=== PATIENT | male | born 1990 | race Caucasian/White ===

== ENCOUNTER 2023-12-05 21:58 | Day surgery (SDC) | payer MEDICAID, SELFPAY ==
--- NOTE | ~2023-12-05 | CT_ITS ---
EXAMINATION: CT ABDOMEN AND PELVIS WITH CONTRAST CLINICAL INFORMATION: Right lower quadrant abdominal pain. Vomiting. COMPARISON: None available. TECHNIQUE: Multidetector volumetric images were obtained from the superior aspect of the liver through the pubic symphysis following administration 85 mL of Omnipaque 350 intravenous contrast. Sagittal and coronal reformatted images were obtained on the technologist's workstation. Oral contrast: No This CT examination was performed using dose optimization techniques as appropriate, variously including the following: *Automated exposure control *Adjustment of mA and/or kV according to patient size (this includes techniques or standardized protocols for targeted exams where dose is matched to indication/reason for exam; i.e. extremities or head) *Use of iterative reconstruction technique DLP: 370 mGy-cm FINDINGS: LUNG BASES: The visualized lung bases are unremarkable. LIVER, GALLBLADDER, AND BILIARY TREE: The liver is normal in size, shape, and attenuation. Peripheral right hepatic 0.9 cm hypodensity, too small to characterize. No additional focal hepatic lesion or biliary ductal dilatation is present. The gallbladder is unremarkable with no evidence of radiopaque gallstones, gallbladder wall thickening, or obvious pericholecystic inflammatory changes. PANCREAS: Unremarkable. SPLEEN: Unremarkable. ADRENAL GLANDS: Unremarkable. KIDNEYS AND URETERS: The kidneys are normal in size, shape, and attenuation. No hydronephrosis, hydroureter, or calculi seen. No perinephric stranding. BLADDER: Unremarkable. GASTROINTESTINAL TRACT: No small or large bowel obstruction. No bowel wall thickening or inflammatory change. The distal tip of the appendix is fluid-filled with minimal wall enhancement measuring up to 0.7 cm in greatest dimension. There is a tiny distal appendicolith measuring up to 0.2 similar. Minimal if any adjacent stranding. Findings could represent early tip appendicitis. No extraluminal air or organized fluid collection to suggest perforation or abscess formation. PERITONEAL CAVITY: No intra-abdominal free air or free fluid. No intra-abdominal mass or organized fluid collection/abscess formation. ABDOMINAL WALL: No significant hernia is appreciated. LYMPH NODES: No significant lymphadenopathy. VASCULAR: Unremarkable. PELVIC VISCERA: The prostate and seminal vesicles are unremarkable. OSSEOUS STRUCTURES: Unremarkable. CT/CT abdomen pelvis w IV con IMPRESSION: 1. Fluid-filled distal tip of the appendix with minimal wall enhancement and a tiny appendicolith. Minimal if any adjacent stranding. Findings could represent early tip appendicitis. No evidence of perforation or abscess formation. 2. No intra-abdominal mass, lymphadenopathy, or ascites. Fleischner guidelines were followed. Electronically signed by: Mark Shafer MD 12/06/2023 06:03 AM EDT RP
[2023-12-05 22:48] VITALS: BP 111/69; PULSE 76; RESP 16; TEMP 37.1; O2SAT 100; BMI 22.7
[2023-12-05 23:07] LABS: MANUAL DIFF FLAG NO
[2023-12-05 23:08] LABS: Basophils Absolute Auto 0.1 X10*3/uL (0.0-0.2); Basophils Percent Auto 0.4 % (0-2); Hematocrit 38.7 % (42.0-52.0); Hemoglobin 12.5 g/dl (14.0-18.0); Imm Gran Abs Auto 0.09 X10*3/uL (0.00-0.03); Imm Gran Pct Auto 0.6 % (0.0-0.4); Lymphocytes Absolute Auto 1.1 X10*3/uL (1.2-4.9); Lymphocytes Percent Auto 6.9 % (20-40); Mean Corpuscular HGB Conc 32.3 g/dl (31.0-36.0); Mean Corpuscular Volume 74.3 fL (80.0-98.0); Mean Platelet Volume 9.8 fL (9.4-12.4); Monocytes Percent Auto 6.1 % (2-11); Neutrophils Absolute Auto 13.7 x10*3/uL (2.0-8.3); Platelet Count 348 X10*3/uL (160-400); Red Blood Count 5.21 X10*6/uL (4.60-5.80); Red Cell Distribution Width 13.9 % (11.0-16.0)
[2023-12-05 23:36] LABS: Alanine Aminotransferase 32 U/L (0-40); Alkaline Phosphatase 58 U/L (39-117); Anion Gap 20 (12-20); Aspartate Amino Transferase 106 U/L (5-37); Bilirubin Total 1.4 mg/dL (0.0-1.0); Blood Urea Nitrogen 23 mg/dL (9-16); Calcium 9.8 mg/dL (8.4-10.2); Carbon Dioxide 20 mmol/L (22-29); Chloride 101 mmol/L (96-108); Creatinine Clr Calc Pharmacy 74.7; Estimated Glomerular Filt Rate 55; Ethanol < 10 mg/dL; Glucose Random 73 mg/dL (60-115); Lipase 21 U/L (8-78); Potassium 3.9 mmol/L (3.3-5.1); Sodium 137 mmol/L (135-145); Total Protein 7.9 g/dL (6.5-8.0)
[2023-12-05 23:44] LABS: Influenza A PCR NEGATIVE (Negative); Influenza B PCR NEGATIVE (Negative); Resp Syncy Virus RNA Qual PCR NEGATIVE (Negative); SARS COV2 PCR INHOUSE NEGATIVE (Negative)
[2023-12-06] VITALS (8 sets, daily range): BP systolic 101–122; BP diastolic 47–67; PULSE 70–93; RESP 16–18; TEMP 36.5–37.1; O2SAT 97–100
--- NOTE | 2023-12-06 02:23 | ED.GENADULT ---
HPI - General Adult General Chief complaint: General Medical Stated complaint: dehydrated, vomiting, wants to pass out Time Seen by Provider: 12/06/23 02:05 Source: patient Mode of arrival: ambulatory Limitations: no limitations History of Present Illness ED Provider: Dr. Fátima Jimenez HPI narrative: patient comes to the emergency room complaining of 3 days of vomiting, not able to tolerate p.o. and right lower quadrant pain. Patient states that he has been trying to stop drinking alcohol. Patient takes naltrexone at home as part of his treatment for alcoholism. Patient states that he has not had any alcohol for 3 days. Patient complaining of right lower quadrant pain, intermittent. Patient states that he has been playing soccer for 2 consecutive days and is not sure if he pulled a muscle. Related Data Allergies Allergy/AdvReac Type Severity Reaction Status Date / Time No Known Allergies Allergy Verified 12/05/23 22:48 Review of Systems Review of Systems: Constitutional : No Weight loss, No Fever, No Chills, No Night Sweats, No Fatigue, No Malaise ENT/Mouth : No Hearing loss, No Ear Pain, No Nasal Congestion, No Sinus Pain, No Hoarseness, No sore throat, No Rhinorrhea, No Swallowing Difficulty Eyes: No Eye Pain, No Swelling, No Redness, No Foreign Body, No Discharge, No Vision Changes Cardiovascular : No Chest Pain, No SOB, No Dyspnea on Exertion, No Orthopnea, No Edema, No Palpitations Respiratory : No Cough, No Sputum, No Wheezing, No Smoke Exposure, No Dyspnea Gastrointestinal : Complaining of nausea and vomiting, no diarrhea, complaining of right lower quadrant pain Genitourinary : no irregular bleeding, No Dysuria, No Urinary Frequency, No Hematuria, No Urinary Incontinence, No Urgency, No Flank Pain, No Urinary Flow Changes, No Hesitancy Musculoskeletal : No joint pain, No Myalgias, No Joint Swelling Skin : No Skin Lesions, No rash Neuro : No Weakness, No Numbness, No Paresthesias, No Loss of Consciousness, No Dizziness, No Headache Psych : No Anxiety/Panic, No Depression, No SI/HI/AH/VH, admits to history of alcoholism but is trying to stop drinking, patient is on naltrexone treatment Heme/Lymph: No Bruising, No Bleeding,No Lymphadenopathy Endocrine : No Polyuria, No Polydipsia, No Temperature Intolerance [facility] Past Medical History Medical History (Updated 12/06/23 @ 06:21 by Fátima Jimneez MD) Alcohol dependence Social History Social History Alcohol intake: current Alcohol intake frequency: 3 or more drinks per day Alcohol type: hard liquor Smoked in Last 30 Days: No Use of substances other than those prescribed or required for medical reasons: No Advance Directives: No Advance Directives Information Provided: No Do you have a plan to hurt others: No Plan Physical Exam ED Vital Signs: Vital Signs - 24 hr 12/05/23 22:48 Temperature 98.7 F Pulse Rate 76 Respiratory Rate 16 Blood Pressure 111/69 Pulse Oximetry 100 Oxygen Delivery Method Room Air BMI result Body Mass Index 22.7 Const Other: Appearance: Alert. Oriented X3. No acute distress. Eyes: Pupils equal, round and reactive to light. ENT: Pharynx normal. Neck: Normal inspection. Neck supple. No lymph nodes noted. No crepitus CVS: Normal heart rate and rhythm. Pulses normal. Normal S1 and S2 Respiratory: No respiratory distress. Breath sounds normal. No Wheezing. No rales Abdomen: Soft , tenderness to palpation in the right lower quadrant, no periumbilical pain Skin: Skin warm and dry. Normal skin color. Normal skin turgor. Extremities: No lower extremity edema. No Lacerations. No Rash Neuro: Oriented X 3. No motor deficit. No sensory deficit. Moving all extremities. No slurred speech. CN 2 through 12 grossly intact Psych: calm, cooperative, normal affect Course Course Course Narrative: patient receiving IV fluids, Zofran, ketorolac, Pepcid - CT scan of the abdomen pending Medications Administered Discontinued Medications Generic Name Dose Route Start Last Admin Trade Name Dana PRN Reason Stop Dose Admin Famotidine 20 mg 12/06/23 02:22 12/06/23 02:40 Famotidine/Pf 20 Mg/2 Ml Vial IVPUSH 12/06/23 02:23 20 mg ONCE ONE Administration Sodium Chloride 2,000 mls @ 999 mls/hr 12/06/23 02:20 12/06/23 04:41 Ns IVCONT 12/06/23 04:20 Infused .Q2H1M ONE Infusion Piperacillin Sod/Tazobactam 50 mls @ 100 mls/hr 12/06/23 06:11 12/06/23 06:44 Sod 3.375 gm/ Sodium Chloride IV 12/06/23 06:40 100 mls/hr ONCE ONE Administration Iohexol 85 ml 12/06/23 02:28 12/06/23 02:37 Iohexol 350 Mg/Ml 100 Ml Infus..Btl IV 12/06/23 02:29 85 ml ONCE ONE Administration Ketorolac Tromethamine 30 mg 12/06/23 02:20 12/06/23 02:40 Ketorolac Tromethamine 30 Mg/Ml Vial IVPUSH 12/06/23 02:21 30 mg ONCE ONE Administration Ondansetron HCl 4 mg 12/06/23 02:20 12/06/23 02:40 Ondansetron Hcl 4 Mg/2 Ml Vial IVPUSH 12/06/23 02:21 4 mg ONCE ONE Administration Medical Decision Making Medical Decision Making [facility] Narrative: - my interpretation of labs: White blood cell count 16.0, creatinine slightly bumped, CPK slightly bumped as well. Patient has been playing full soccer games daily for the last couple of days. - Patient receiving IV fluids, Zofran, famotidine and ketorolac. - My interpretation of CT scan, questionable appendicitis - radiology report: Possible early tip appendicitis - Patient empirically being treated with antibiotics, patient already received IV fluids. Sepsis is not suspected. - I discussed the patient with Dr. Escobar from general surgery, he was by earlier this morning to assess the patient. - 07:00: Dr. Escobar assessed the patient, patient will be going to the OR Differential Diagnosis Differential Diagnoses: The differential diagnosis associated with the presentation includes ( Dehydration, musculoskeletal pain, appendicitis) Admission/Observation Consideration of admission/observation: Escalation of care including admission/observation considered ( patient may have appendicitis, surgery consult pending) Consult Healthcare Provider Management of the patient was discussed with: Physical Medicine Specialist Lab Data [facility] Lab Attestation statement: I reviewed the patient's lab results. 12/05/23 23:03 12/05/23 23:03 Labs: Lab Results 12/05/23 12/06/23 Range/Units 23:03 06:22 WBC 16.0 H (4.8-10.8) X10*3/uL RBC 5.21 (4.60-5.80) X10*6/uL Hgb 12.5 L (14.0-18.0) g/dl Hct 38.7 L (42.0-52.0) % MCV 74.3 L (80.0-98.0) fL MCH 24.0 L (27.0-33.0) pg MCHC 32.3 (31.0-36.0) g/dl RDW 13.9 (11.0-16.0) % Plt Count 348 (160-400) X10*3/uL MPV 9.8 (9.4-12.4) fL Immature Gran % (Auto) 0.6 H (0.0-0.4) % Neut % (Auto) 86.0 H (45-73) % Lymph % (Auto) 6.9 L (20-40) % [place] % (Auto) 6.1 (2-11) % Eos % (Auto) 0.0 (0-4) % Baso % (Auto) 0.4 (0-2) % Lymph # (Auto) 1.1 L (1.2-4.9) X10*3/uL [place] # (Auto) 1.0 (0.1-1.2) X10*3/uL Eos # (Auto) 0.0 (0.0-0.4) X10*3/uL Baso # (Auto) 0.1 (0.0-0.2) X10*3/uL Abs Immat Gran (auto) 0.09 H (0.00-0.03) X10*3/uL Absolute Neuts (auto) 13.7 H (2.0-8.3) x10*3/uL Absolute Nucleated RBC 0.000 (0.0-0.012) X10*3/uL Nucleated RBC % (auto) 0.0 (0.0-0.2) /100WBC Sodium 137 (135-145) mmol/L Potassium 3.9 (3.3-5.1) mmol/L Chloride 101 (96-108) mmol/L Carbon Dioxide 20 L (22-29) mmol/L Anion Gap 20 (12-20) BUN 23 H (9-16) mg/dL Creatinine 1.47 H (0.5-1.4) mg/dL Estim Creat Clear Calc 74.7 Estimated GFR 55 Random Glucose 73 (60-115) mg/dL Calcium 9.8 (8.4-10.2) mg/dL Total Bilirubin 1.4 H (0.0-1.0) mg/dL AST 106 H (5-37) U/L ALT 32 (0-40) U/L Alkaline Phosphatase 58 (39-117) U/L Total Creatine Kinase 3687 H (38-174) U/L Total Protein 7.9 (6.5-8.0) g/dL Albumin 5.0 (3.5-5.0) g/dL Lipase 21 (8-78) U/L Urine Opiates Screen Not Detected (Not Detect) Ur Buprenorphine Scrn Not Detected (Not Detect) ng/mL Ur Oxycodone Screen Not Detected (Not Detect) ng/mL Urine Methadone Screen Not Detected (Not Detect) ng/mL Urine Fentanyl Screen Not Detected (Not Detect) Ur Barbiturates Screen Not Detected (Not Detect) Ur Phencyclidine Scrn Not Detected (Not Detect) Ur Amphetamines Screen Not Detected (Not Detect) U Benzodiazepines Scrn Not Detected (Not Detect) Urine Cocaine Screen Not Detected (Not Detect) U Marijuana (THC) Screen POSITIVE H (Not Detect) Ethyl Alcohol < 10 mg/dL Influenza Type A (PCR) NEGATIVE (Negative) Influenza Type B (PCR) NEGATIVE (Negative) RSV RNA Qual (PCR) NEGATIVE (Negative) SARS-CoV-2 RNA (RT-PCR) NEGATIVE (Negative) Independent Interpretation I performed an independent interpretation of an: CT Scan Radiology Impression Discussion of test interpretation with radiology: I have reviewed the radiologist's reading. Radiologist Impression: LUNG BASES: The visualized lung bases are unremarkable. LIVER, GALLBLADDER, AND BILIARY TREE: The liver is normal in size, shape, and attenuation. Peripheral right hepatic 0.9 cm hypodensity, too small to characterize. No additional focal hepatic lesion or biliary ductal dilatation is present. The gallbladder is unremarkable with no evidence of radiopaque gallstones, gallbladder wall thickening, or obvious pericholecystic inflammatory changes. PANCREAS: Unremarkable. SPLEEN: Unremarkable. ADRENAL GLANDS: Unremarkable. KIDNEYS AND URETERS: The kidneys are normal in size, shape, and attenuation. No hydronephrosis, hydroureter, or calculi seen. No perinephric stranding. BLADDER: Unremarkable. GASTROINTESTINAL TRACT: No small or large bowel obstruction. No bowel wall thickening or inflammatory change. The distal tip of the appendix is fluid-filled with minimal wall enhancement measuring up to 0.7 cm in greatest dimension. There is a tiny distal appendicolith measuring up to 0.2 similar. Minimal if any adjacent stranding. Findings could represent early tip appendicitis. No extraluminal air or organized fluid collection to suggest perforation or abscess formation. PERITONEAL CAVITY: No intra-abdominal free air or free fluid. No intra-abdominal mass or organized fluid collection/abscess formation. ABDOMINAL WALL: No significant hernia is appreciated. LYMPH NODES: No significant lymphadenopathy. VASCULAR: Unremarkable. PELVIC VISCERA: The prostate and seminal vesicles are unremarkable. OSSEOUS STRUCTURES: Unremarkable. CT/CT abdomen pelvis w IV con IMPRESSION: 1. Fluid-filled distal tip of the appendix with minimal wall enhancement and a tiny appendicolith. Minimal if any adjacent stranding. Findings could represent early tip appendicitis. No evidence of perforation or abscess formation. 2. No intra-abdominal mass, lymphadenopathy, or ascites. Fleischner guidelines were followed. Critical Care Time Critical Care Time Critical Care Time: Yes Total Critical Care Time: 60 Attestation: I have personally provided critical care time. Time includes review of lab data, radiology results, discussion with consultants, and monitoring for potential decompensation. Intervention performed as documented. Discharge Plan Discharge Clinical Impression: Rhabdomyolysis, Acute appendicitis Patient Disposition: Admitted As Inpatient Print Language: Bengali
[2023-12-06] MEDS: iohexoL 350 MG/ML 100 ML INFUS..BTL 85 ML IV (02:37)
[2023-12-06] MEDS: ondansetron HCL 4 MG/2 ML VIAL IVPUSH (02:40)
[2023-12-06] MEDS: 0.9 % Sodium Chloride 2,000 ML 999 ML IVCONT (02:40)
[2023-12-06] MEDS: Ketorolac Tromethamine 30 MG/ML VIAL IVPUSH (02:40)
[2023-12-06] MEDS: Famotidine/PF 20 MG/2 ML VIAL IVPUSH (02:40)
[2023-12-06] MEDS: Piperacillin Sodium/Tazobactam 3.375 GM in 0.9 % Sodium Chloride 50 ML IV (06:44)
[2023-12-06 06:48] LABS: Amphetamine Screen Urine Not Detected (Not Detect); Barbiturates, Urine Not Detected (Not Detect); Benzodiazepines Screen Urine Not Detected (Not Detect); Buprenorphine Scr Not Detected (Not Detect); Cannabinoid Screen Urine POSITIVE (Not Detect); Cocaine Screen Urine Not Detected (Not Detect); Fentanyl, urine Not Detected (Not Detect); Methadone Screen, Urine Not Detected (Not Detect); Opiate Screen Urine Not Detected (Not Detect); Oxycodone Screen Urine Not Detected (Not Detect); Phencyclidine Screen Urine Not Detected (Not Detect)
--- NOTE | 2023-12-06 07:13 | PM.HPGS ---
History of Present Illness History of Present Illness Date of Service: 12/06/23 Chief complaint: dehydrated, vomiting, wants to pass out Narrative: Bk Bello is a 33 year old male who yesterday afternoon felt unwell with periumbilical tenderness and nausea and vomiting. Over the next few hours and overnight patient progressed to right lower quadrant pain and increasing severity. He presents to the hospital further evaluation. Workup including CT scan demonstrated findings consistent with appendicitis. Patient denies any sick contacts. He has never had this before. He has not had any unusual diet. Patient was quite active. He is playing vigorous soccer yesterday afternoon when his symptoms commenced. Chart was reviewed and patient evaluated PMFSH Past Medical History Medical History (Updated 12/06/23 @ 06:21 by Fátima Jimenez MD) Alcohol dependence Social History Social History Alcohol intake: current Alcohol intake frequency: 3 or more drinks per day Alcohol type: hard liquor Smoked in Last 30 Days: No Use of substances other than those prescribed or required for medical reasons: No Advance Directives: No Advance Directives Information Provided: No Do you have a plan to hurt others: No Plan Meds Allergies Allergy/AdvReac Type Severity Reaction Status Date / Time No Known Allergies Allergy Verified 12/05/23 22:48 Physical Exam Vital Signs: Vital Signs: Last Vital Signs Temp 98.7 F 12/05/23 22:48 Pulse 76 12/05/23 22:48 Resp 16 12/05/23 22:48 BP 111/69 12/05/23 22:48 Pulse Ox 100 12/05/23 22:48 O2 Del Method Room Air 12/05/23 22:48 BMI result Body Mass Index 22.7 Chest: Other: Chest breath sounds bilaterally, HS 1 in 2 GI: Other: Abdomen soft. Localized right lower quadrant rebound tenderness. No other evidence of any diffuse peritonitis, guarding, rebound, or rigidity. Results Results Labs: Short CBC 12/05/23 Range/Units 23:03 WBC 16.0 H (4.8-10.8) X10*3/uL Hgb 12.5 L (14.0-18.0) g/dl Hct 38.7 L (42.0-52.0) % Plt Count 348 (160-400) X10*3/uL BMP 12/05/23 23:03 Sodium 137 Potassium 3.9 Chloride 101 Carbon Dioxide 20 L BUN 23 H Creatinine 1.47 H Calcium 9.8 Cardiac Enzymes 12/05/23 Range/Units 23:03 Total Creatine Kinase 3687 H (38-174) U/L Liver Function 12/05/23 Range/Units 23:03 Total Bilirubin 1.4 H (0.0-1.0) mg/dL AST 106 H (5-37) U/L ALT 32 (0-40) U/L Alkaline Phosphatase 58 (39-117) U/L Albumin 5.0 (3.5-5.0) g/dL Assessment and Plan (1) Acute appendicitis: Status: Acute Plan Risks, benefits, alternatives laparoscopic possible open appendectomy the me were reviewed with the patient included but not limited to bleeding, infection, numbness, pain, scarring, bladder or bowel injury and the patient wishes to proceed. All questions answered. Patient will be an add on for this morning. Quality Stroke Does the patient have a stroke diagnosis?: No VTE Prior VTE?: No VTE Risk Level:: Surgical - low VTE Device Contraindication: N/A - Device Ordered VTE Drug Contraindication: Treatment Not Indicated Procedures Date of Service Date of Service: 12/06/23
--- NOTE | 2023-12-06 07:25 | HO.ANESPROP2 ---
HPI - Anesthesia Eval Consult details Narrative: 33 yo male patient with acute appendicitis and ? rhabdomyolysis. For laparoscopic appendectomy PMFSH Active Problems Active Problems: All Active Problems Acute appendicitis (Acute) Rhabdomyolysis (Acute) Very relaxed but answering questions appropriately Positive marijuana, ETOH negative Last ETOH intake 4 days ago Past Medical History Medical History Alcohol dependence Family History Family history of problems with anesthesia: No Surgical History Surgical History Hx of circumcision Hx of vasectomy History of Problems with Anesthesia: No Social History Social History Alcohol intake: current Alcohol intake frequency: 3 or more drinks per day Alcohol type: hard liquor Smoked in Last 30 Days: No Use of substances other than those prescribed or required for medical reasons: No Advance Directives: No Advance Directives Information Provided: No Do you have a plan to hurt others: No Plan Meds Allergies Allergy/AdvReac Type Severity Reaction Status Date / Time No Known Allergies Allergy Verified 12/05/23 22:48 Exam Height,Weight and Vital Signs: Height 5 ft 11 in Weight 73.9 kg Last Vital Signs Temp 98.7 F 12/05/23 22:48 Pulse 76 12/05/23 22:48 Resp 16 12/05/23 22:48 BP 111/69 12/05/23 22:48 Pulse Ox 100 12/05/23 22:48 O2 Del Method Room Air 12/05/23 22:48 Vital Signs Temp Pulse Resp BP Pulse Ox O2 Del Method 12/06/23 07:15 98.1 F 93 18 122/49 L 100 Room Air 12/05/23 22:48 98.7 F 76 16 111/69 100 Room Air Pertinent Lab Results Pertinent Lab Results: Laboratory Tests 12/05/23 12/06/23 23:03 06:22 WBC 16.0 H RBC 5.21 Hgb 12.5 L Hct 38.7 L MCV 74.3 L MCH 24.0 L MCHC 32.3 RDW 13.9 Plt Count 348 MPV 9.8 Immature Gran % (Auto) 0.6 H Neut % (Auto) 86.0 H Lymph % (Auto) 6.9 L [place] % (Auto) 6.1 Eos % (Auto) 0.0 Baso % (Auto) 0.4 Lymph # (Auto) 1.1 L [place] # (Auto) 1.0 Eos # (Auto) 0.0 Baso # (Auto) 0.1 Abs Immat Gran (auto) 0.09 H Absolute Neuts (auto) 13.7 H Absolute Nucleated RBC 0.000 Nucleated RBC % (auto) 0.0 Sodium 137 Potassium 3.9 Chloride 101 Carbon Dioxide 20 L Anion Gap 20 BUN 23 H Creatinine 1.47 H Estim Creat Clear Calc 74.7 Estimated GFR 55 Random Glucose 73 Calcium 9.8 Total Bilirubin 1.4 H AST 106 H ALT 32 Alkaline Phosphatase 58 Total Creatine Kinase 3687 H Total Protein 7.9 Albumin 5.0 Lipase 21 Urine Opiates Screen Not Detected Ur Buprenorphine Scrn Not Detected Ur Oxycodone Screen Not Detected Urine Methadone Screen Not Detected Urine Fentanyl Screen Not Detected Ur Barbiturates Screen Not Detected Ur Phencyclidine Scrn Not Detected Ur Amphetamines Screen Not Detected U Benzodiazepines Scrn Not Detected Urine Cocaine Screen Not Detected U Marijuana (THC) Screen POSITIVE H Ethyl Alcohol < 10 Influenza Type A (PCR) NEGATIVE Influenza Type B (PCR) NEGATIVE RSV RNA Qual (PCR) NEGATIVE SARS-CoV-2 RNA (RT-PCR) NEGATIVE Airway Mallampati Class: II TM Dist: >3cm Neck ROM: Full Loose/Missing/Broken Teeth: No (Denies broken, loose, missing teeth) Heart: RRR Lungs: CTAB Assessment and Plan Assessment Anesthesia Assessment: Anesthesia Plan Discussed and Chart Reviewed Final Anesthetic Review Family History of Problems with Anesthesia: No History of Problems with Anesthesia: No NPO: Yes ASA Class: III and Emergency Final Preanesthetic Review: No Changes in Pt Med Stat, Meds/Allgs Chart Reviewed, Consent Obtained/Reviewed and Anes Risks/Benef Reviewed Patient Risk: Intermediate Procedure Risk: Intermediate Assessment/Block/Sedation in SS: Assess/Block/Sedation-SS Anesthetic Plan Anesthetic Plan: GA and Other Disposition: Standard PACU
[2023-12-06] MEDS: Lactated Ringers 1,000 ML 50 ML IVCONT (07:35)
--- NOTE | 2023-12-06 08:59 | P.OP_ITS ---
Operative Note Operative Note Date of Service: 12/06/23 Narrative: Preoperative diagnosis: [] Acute appendicitis Postop diagnosis: [] The same Procedure [] laparoscopic appendectomy Surgeon: [] Shawn Senior Control Systems Engineer: [] Type of Anesthesia: [] General Indication for surgery: [] Edematous inflamed distal portion of the appendix. No gross evidence of perforation. No other obvious intra-abdominal pathology demonstrated. Findings: [] Patient brought to the operating room, placed on operative table supine position, after an adequate level of general anesthesia was induced, under sterile technique a Medrano catheter was placed, and the abdomen was prepped and draped in usual sterile fashion. Using a supraumbilical curvilinear incision, Vallejo technique was used to insufflate abdominal cavity to 15 mm of CO2. Lower midline and suprapubic ports were placed under direct laparoscopic view, the patient placed in Trendelenburg position, and tilted to the left. Findings were as noted above. Appendix was grasped and brought onto the field. It is mesentery was sequentially taken down using double firing of ligature device. Appendix was then transected at the cecal base using endoscopic ROMAIN stapler. Specimen was placed in an Endo-Catch bag, a retrieved through the umbilical port. Abdominal cavity was copiously irrigated, secured hemostasis. All ports removed under direct laparoscopic view. Wounds were closed in the following manner; umbilical wound is fascia reapproximated using interrupted 0 Vicryl sutures. Skin wounds were closed using subcuticular 4-0 Vicryl sutures followed by Steri-Strips and sterile dressings. Wounds were infiltrated with 0.5% Marcaine at completion. Sponge, needle, and instrument counts reported correct. Patient tolerated the procedure well and emerged from anesthesia stable condition. EBL minimal
[2023-12-06] MEDS: oxyCODONE HCl Immed Release 5 MG TABLET PO (09:05)
== END 2023-12-06 10:15 | disposition home or self-care (01) ==
LOC: HO.ED 12-06 07:04 → HO.SSS 12-06 07:11
PROVIDERS: Emergency Provider Emergency Medicine; Visit Provider Surgery
PROC: 0DTJ4ZZ Resection of Appendix, Percutaneous Endoscopic Approach (ICD-10-PCS; CPT 44970; principal; 2023-12-06 07:30)
DX: K35.80 Unspecified acute appendicitis (principal); M62.82 Rhabdomyolysis; R11.2 Nausea with vomiting, unspecified; E86.0 Dehydration; F10.20 Alcohol dependence, uncomplicated; Z98.52 Vasectomy status; Z03.818 Encounter for observation for suspected exposure to other biological agents ruled out
CPT/HCPCS: 44970; 0241U; 36415; 74177; 80053; 80307; 82550; 83690; 85025; 87040; 88304; 96361; 96374; 96375; 99284; 99285; J1200; J1885; J2250; J2405; J2543; J2704; J2795; J3010; Q9967

== ENCOUNTER → 2023-12-06 07:09 | Outpatient (BNV) | payer MEDICAID, SELFPAY | PROVIDERS: Emergency Provider Emergency Medicine; Visit Provider Surgery | DX: K35.80 Unspecified acute appendicitis (principal) | CPT/HCPCS: 44970; 99284 ==

== ENCOUNTER 2023-12-16 11:14 | Outpatient (AMB) | payer MEDICAID, SELFPAY ==
--- NOTE | 2023-12-16 11:21 | A.OFFVIS_ITS ---
Intake Visit Reasons: s/p appendectomy Intake Note: This patient presents for post-op assessment status post laparoscopic appendectomy. Pt c/o; reports no complaints pertaining to surgery. Collection Support Specialist Required: No Accompanied by: Self / Same As Patient Allergies No Known Allergies Allergy (Verified 12/16/23 11:25) HPI Comments Details: Patient is status post appendectomy. He is doing quite well. He is starting a diet. Having regular bowel habits. It is increasing his activity level. He has minimal incisional discomfort PFSH Medical History Alcohol dependence Surgical History History of laparoscopic appendectomy (~12/06/23) Hx of circumcision Hx of vasectomy Social History Are you a primary animal care supervisor to a significant other at home: No Do you presently have visiting nurse or other home services: No Alcohol intake: current Alcohol intake frequency: 3 or more drinks per day Alcohol type: hard liquor Patient Tobacco Use Status: Never used Tobacco Physical Exam GI Other: Abdomen is soft, benign, scaphoid. All wounds clean dry and intact healing very well Assessment & Plan Assessment & Plan (1) Status post laparoscopic appendectomy: Code(s): Z90.49 - Acquired absence of other specified parts of digestive tract Category: Medical Plan Patient has been given local instructions, and will follow-up p.r.n.. All questions answered. Coding Level of Care Code Global (10711) Diagnoses Status post laparoscopic appendectomy Z90.49
== END 2023-12-16 11:32 | disposition home or self-care (01) ==
LOC: HO.HGS 11:14
PROVIDERS: Visit Provider Surgery
DX: Z90.49 Acquired absence of other specified parts of digestive tract (principal)
CPT/HCPCS: 99024

== ENCOUNTER → 2023-12-16 11:14 | Outpatient (BNVA) | payer MEDICAID, SELFPAY | PROVIDERS: Visit Provider Surgery | DX: Z48.815 Encounter for surgical aftercare following surgery on the digestive system (principal); Z90.49 Acquired absence of other specified parts of digestive tract; Z98.890 Other specified postprocedural states | CPT/HCPCS: 99212 ==

== ENCOUNTER 2024-01-30 11:33 | Emergency (ER) | payer MEDICAID, SELFPAY ==
--- NOTE | ~2024-01-30 | CT_ITS ---
EXAMINATION: CT HEAD WITHOUT CONTRAST CLINICAL INFORMATION: acute onset dizziness COMPARISON: None available. TECHNIQUE: Contiguous axial imaging was performed from the skull base to vertex without intravenous administration of contrast. This CT examination was performed using dose optimization techniques as appropriate, variously including the following: *Automated exposure control *Adjustment of mA and/or kV according to patient size (this includes techniques or standardized protocols for targeted exams where dose is matched to indication/reason for exam; i.e. extremities or head) *Use of iterative reconstruction technique DLP: 801 mGy-cm FINDINGS: No acute intracranial hemorrhage, mass effect, midline shift, hydrocephalus or herniation. Graves-white matter differentiation is normal. Posterior cranial fossa contents demonstrated no acute intracranial hemorrhage or mass effect. Bony calvarium is intact. Skull base is intact. No air-fluid levels in the paranasal sinuses. Tympanic cavities and mastoid cells are aerated.. CT/CT head/brain wo IV con IMPRESSION: No acute intracranial hemorrhage. Electronically signed by: Christo Laws MD 01/30/2024 03:49 PM EDT
[2024-01-30 11:37] VITALS: BP 126/76; PULSE 83; RESP 20; TEMP 36.8; O2SAT 99; BMI 23.9
--- NOTE | 2024-01-30 11:40 | ED_ITS ---
HPI - General Adult General Chief complaint: Dizziness Stated complaint: Dizziness, disoriented Time Seen by Provider: 01/30/24 14:10 Source: patient Mode of arrival: ambulatory Limitations: no limitations History of Present Illness ED Provider: BLOSSOM APODACA PA-C HPI narrative: 33-year-old male presents to the ED today for evaluation of acute onset dizziness x2 days. Reports dizziness has been intermittent. These episodes will come on suddenly. He describes them as a room spinning sensation. Dizziness will last for a few seconds before completely resolving. Reports symptoms are largely exacerbated with moving his head. Admits to associated nausea without vomiting. Denies nausea present. Denies any difficulty ambulating. Denies head strike/ injury or trauma. No known history of vertigo. He does have a history of ETOH abuse and will occasionally take naltrexone. He has not not taken naltrexone recently and has not consumed ETOH in approximately 4 days. Denies history of alcohol withdrawal or withdrawal seizures. Denies AH/VH/TH. Denies illicit substance use. He does not currently take any medications daily. Denies headache, vision changes, sore throat, chest pain, palpitations, shortness of breath, cough, hemoptysis, lower extremity pain/swelling. Denies recent travel or long car rides. Related Data Home Medications ?Medication ?Instructions ?Recorded ?Confirmed naltrexone 12/06/23 12/16/23 Previous Rx's ?Medication ?Instructions ?Recorded ibuprofen 800 mg tablet 800 mg PO Q8H PRN pain #30 tabs 12/06/23 meclizine 25 mg tablet 25 mg PO BID PRN dizziness #20 tabs 01/30/24 Allergies Allergy/AdvReac Type Severity Reaction Status Date / Time No Known Allergies Allergy Verified 01/30/24 11:40 Review of Systems 2 Review of Systems: Constitutional: No fever, chills, fatigue, night sweats, weight changes ENT/Mouth: No ear pain, hearing loss, nasal congestion, sinus pain, rhinorrhea, sore throat Eyes: No eye pain, swelling, redness, vision changes, discharge Cardio: No chest pain, palpitations, CASSIDY, orthopnea, peripheral edema Pulm: No SOB, cough, sputum, wheezing, dyspnea, hemoptysis GI: No nausea, vomiting, hematemesis, abdominal pain, diarrhea, constipation, hematochezia, melena : No irregular bleeding, dysuria, frequency, urgency, hesitancy, hematuria, flank pain, urinary flow changes, urinary incontinence or retention MSK: No back pain, neck pain, joint pain, myalgias Skin: No lesions, rashes Neuro: No weakness, numbness, paresthesias, LOC, +dizziness, headache Psych: No anxiety/panic, depression, SI/HI, AH/VH All other systems reviewed and are negative. COUNTS INCLUDE 234 BEDS AT THE [facility] Past Medical History Attestation statement: The following information was validated with the patient. Source: old records reviewed and nursing notes reviewed Medical History Alcohol dependence Surgical History History of laparoscopic appendectomy (~12/06/23) Hx of circumcision Hx of vasectomy Social History Social History Are you a primary medicare insurance specialist to a significant other at home: No Do you presently have visiting nurse or other home services: No Alcohol intake: current Alcohol intake frequency: 3 or more drinks per day Alcohol type: hard liquor Patient Tobacco Use Status: Never used Tobacco Physical Exam ED Vital Signs: Vital Signs - 24 hr 01/30/24 11:37 01/30/24 13:47 01/30/24 15:14 Temperature 98.2 F 98.4 F Pulse Rate 83 65 67 Respiratory Rate 20 16 16 Blood Pressure 126/76 128/59 L 113/65 Pulse Oximetry 99 100 100 Oxygen Delivery Method Room Air Room Air Room Air 01/30/24 17:15 Temperature 98.0 F Pulse Rate 67 Respiratory Rate 16 Blood Pressure 113/65 Pulse Oximetry 100 Oxygen Delivery Method Room Air BMI result Body Mass Index 23.9 vital signs stable General: Well appearing, in no acute distress. Skin: Warm, dry, intact. No rashes or lesions. Head: Normocephalic, atraumatic. EENT: Hearing is intact b/l. Conjunctiva clear. PERRLA. EOM intact. Moist mucous membranes.? Neck: Supple without LAD. FROM. Trachea midline.? Cardiac: Chest wall symmetric. RRR. Lungs: Normal respiratory effort without accessory muscle use. CTA bilaterally. Abdomen: Soft, non-tender, non-distended. No rebound tenderness or guarding. Positive BS x4. Back: No midline spinous or paraspinal tenderness. No step off deformity. Ext: Upper and lower extremities atraumatic, without tenderness, deformity, swelling or erythema. Full ROM throughout. Neuro: AOx3. Normal speech. Strength 5/5 intact throughout. Sensation intact to light touch. NV intact distally. No fatigable nystagmus. Normal hcdnhx-[id number]-[id number], [id number]. Ambulating with steady gait. Psych: Appropriate mood and affect. Responds appropriately to questions. Course Course Course Narrative: RME, this is a rapid medical exam performed by Galo Cruz please refer to primary provider for complete H&P- 33-year-old male presents for evaluation of intermittent dizziness for the last 2 days. He denies any known history of vertigo but describes his symptoms as room spinning. He reports associated nausea and occasional ?feeling like I am going to pass out. ? Plan for labs, urinalysis, viral swabs Reevaluation(s) Reevaluation #1: 1440 -- CBC without leukocytosis or left shift. Chronic microcytic anemia, stable when compared to priors. H&H above transfusion threshold. Chemistry without acute electrolyte abnormality requiring intervention. No EFREN. CK 231, no concern for rhabdomyolysis. Troponin pending. Lipase WNL. Negative for COVID, flu, RSV. Urine negative for infection. > will trial of meclizine. CT head/brain added for further eval. 1618 -- on re-evaluation, patient states that he has had no further episodes of dizziness since receiving meclizine. I have witnessed him ambulating with steady gait to the bathroom multiple times. He states he feels improved. CT head/brain does not demonstrate any intracranial pathology including bleed and mass. Patient likely has vertigo. I do not feel as though CTA head/neck or MRI of brain is warranted at this time. Will send meclizine and Zofran to pharmacy to treat symptomatically. Advised to follow up with PCP as he may require physical therapy in the future. She verbalizes understanding and is agreeable with plan. Patient has remained stable throughout ED visit today. Discussed worrisome signs and symptoms and when to return to the ED. All questions answered at this time. Patient is agreeable with disposition and stable for discharge. Medications Administered Discontinued Medications Generic Name Dose Route Start Last Admin Trade Name Freq PRN Reason Stop Dose Admin Meclizine HCl 25 mg 01/30/24 14:51 01/30/24 15:13 Meclizine Hcl 25 Mg Tablet PO 01/30/24 14:52 25 mg ONCE ONE Administration Medical Decision Making Medical Decision Making [facility] Narrative: 33-year-old male presents to the ED today for evaluation of acute onset dizziness x2 days. Vital signs stable. afebrile. not tachycardic or hypoxic. His exam is nonfocal. Cerebellum is intact. He is ambulating with steady gait. No noted fatigable nystagmus. RRR. Lungs CTA. No calf tenderness b/l. Dizziness is most consistent with a peripheral cause, likely vertigo.? Differential diagnoses includes: BPPV vs labrynthitis. No red flag features for central vertigo to include gradual onset, vertical/bidirectional or nonfatigable nystagmus, focal neurologic findings on exam (including inability to ambulate). 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 Other acute, emergent causes of vertigo are unlikely given at this time. No indication for head imaging at this time. Given no history of similar, will obtain CT head/ brain to r/o bleed or mass. Plan: labs, UA, viral serology, ethanol, trial meclizine, serial reassessment Differential Diagnosis Differential Diagnoses: The differential diagnosis associated with the presentation includes as above. Admission/Observation not indicated. Lab Data [facility] Lab Attestation statement: I reviewed the patient's lab results. as above. 01/30/24 12:16 01/30/24 12:16 Labs: Lab Results 01/30/24 01/30/24 Range/Units 12:16 13:49 WBC 5.9 (4.8-10.8) X10*3/uL RBC 5.13 (4.60-5.80) X10*6/uL Hgb 12.4 L (14.0-18.0) g/dl Hct 38.1 L (42.0-52.0) % MCV 74.3 L (80.0-98.0) fL MCH 24.2 L (27.0-33.0) pg MCHC 32.5 (31.0-36.0) g/dl RDW 14.4 (11.0-16.0) % Plt Count 375 (160-400) X10*3/uL MPV 9.8 (9.4-12.4) fL Immature Gran % (Auto) 0.2 (0.0-0.4) % Neut % (Auto) 78.8 H (45-73) % Lymph % (Auto) 14.2 L (20-40) % [place] % (Auto) 5.6 (2-11) % Eos % (Auto) 0.2 (0-4) % Baso % (Auto) 1.0 (0-2) % Lymph # (Auto) 0.8 L (1.2-4.9) X10*3/uL [place] # (Auto) 0.3 (0.1-1.2) X10*3/uL Eos # (Auto) 0.0 (0.0-0.4) X10*3/uL Baso # (Auto) 0.1 (0.0-0.2) X10*3/uL Abs Immat Gran (auto) 0.01 (0.00-0.03) X10*3/uL Absolute Neuts (auto) 4.7 (2.0-8.3) x10*3/uL Absolute Nucleated RBC 0.000 (0.0-0.012) X10*3/uL Nucleated RBC % (auto) 0.0 (0.0-0.2) /100WBC PT 11.9 (10.9-12.4) SEC INR 1.0 (0.9-1.1) Sodium 137 (135-145) mmol/L Potassium 4.0 (3.3-5.1) mmol/L Chloride 103 (96-108) mmol/L Carbon Dioxide 28 (22-29) mmol/L Anion Gap 10 L (12-20) BUN 12 (9-16) mg/dL Creatinine 1.10 (0.5-1.4) mg/dL Estim Creat Clear Calc 101.7 Estimated GFR > 60 Random Glucose 91 (60-115) mg/dL Calcium 10.0 (8.4-10.2) mg/dL Total Bilirubin 1.3 H (0.0-1.0) mg/dL AST 33 (5-37) U/L ALT 20 (0-40) U/L Alkaline Phosphatase 52 (39-117) U/L Total Creatine Kinase 231 H (38-174) U/L Troponin I High Sens < 2.7 (<3.5-35.0) ng/L Total Protein 7.4 (6.5-8.0) g/dL Albumin 4.7 (3.5-5.0) g/dL Lipase 18 (8-78) U/L Urine Color Yellow Urine Appearance Clear Urine pH 6.0 (5.0-9.0) Ur Specific [place] 1.015 (1.005-1.025) Urine Protein Trace (Neg-Trace) mg/dL Urine Glucose (UA) Negative (Negative) mg/dL Urine Ketones Trace (Negative) mg/dL Urine Blood Negative (Negative) Urine Nitrite Negative (Negative) Ur Leukocyte Esterase Trace H (Negative) Urine RBC 0-2 (0-2) /HPF Urine WBC 0-5 (0-5) /HPF Ur Squamous Epith Cells 0-2 (0-2) /HPF Urine Bacteria None Seen (None Seen) Hyaline Casts 0-2 (0-2) /LPF COVID-19 (JIMENA) Negative (Negative) COVID-19 Clin Com See Note Influenza Type A (KRYSTA) Negative (Negative) Influenza Type B (KRYSTA) Negative (Negative) Influenza A & B Note See Note Independent Interpretation I performed an independent interpretation of an: EKG and CT Scan Interpretation: EKG showing normal sinus rhythm with sinus arrhythmia, rate of 61 beats per minute, QT 364, QTC 366, no acute ischemic changes or ST elevations. CT head/brain without bleed or mass. Radiology Impression Discussion of test interpretation with radiology: I have reviewed the radiologist's reading. Radiologist Impression: EXAMINATION: CT HEAD WITHOUT CONTRAST CLINICAL INFORMATION: acute onset dizziness COMPARISON: None available. TECHNIQUE: Contiguous axial imaging was performed from the skull base to vertex without intravenous administration of contrast. This CT examination was performed using dose optimization techniques as appropriate, variously including the following: *Automated exposure control *Adjustment of mA and/or kV according to patient size (this includes techniques or standardized protocols for targeted exams where dose is matched to indication/reason for exam; i.e. extremities or head) *Use of iterative reconstruction technique DLP: 801 mGy-cm FINDINGS: No acute intracranial hemorrhage, mass effect, midline shift, hydrocephalus or herniation. Graves-white matter differentiation is normal. Posterior cranial fossa contents demonstrated no acute intracranial hemorrhage or mass effect. Bony calvarium is intact. Skull base is intact. No air-fluid levels in the paranasal sinuses. Tympanic cavities and mastoid cells are aerated.. CT/CT head/brain wo IV con IMPRESSION: No acute intracranial hemorrhage. Electronically signed by: Christo Laws MD 01/30/2024 03:49 PM EDT Prescription Management I considered prescription management with: Other (meclizine) Social Determinants Patient?s care significantly limited by Social Determinants of Health including: Alcoholism and drug addiction in family and Other Social Determinant of Health Critical Care Time Critical Care Time Critical Care Time: No Discharge Plan Discharge Clinical Impression: Benign paroxysmal positional vertigo Patient Disposition: Home, Self-Care Instructions: Meclizine (By mouth), Benign Paroxysmal Positional Vertigo (ED), Dizziness (ED) Additional Instructions: Your lab work today is reassuring. Your EKG is normal. Your urine is negative for infection. You tested negative for covid/flu/rsv. The CT scan of your head is normal. No bleed or mass. You report improvement in dizziness after receiving meclizine. Meclizine has been sent to your pharmacy for you to take as needed for dizziness. As discussed, please follow up with your PCP as you may require physical therapy. Return with new or worsening symptoms. In the case of an emergency call 911. Prescriptions: New meclizine 25 mg tablet 25 mg PO BID PRN (Reason: dizziness) Qty: 20 0RF No Action naltrexone ibuprofen 800 mg tablet 800 mg PO Q8H PRN (Reason: pain) Qty: 30 0RF Interventions: ED Discharge Assessment Last Done: 01/30/24 17:15 Discharge Date/Time: 01/30/24 17:16 Print Language: Kenyan
--- NOTE | 2024-01-30 11:41 | ECG_ITS ---
Test Reason : dizziness Blood Pressure : / mmHG Vent. Rate : 061 BPM Atrial Rate : 061 BPM P-R Int : 168 ms QRS Dur : 094 ms QT Int : 364 ms P-R-T Axes : 072 073 011 degrees QTc Int : 366 ms Normal sinus rhythm with sinus arrhythmia Normal ECG No previous ECGs available Referred By: Nilo Cruz Electronically Signed By:Hu Stroud
[2024-01-30 12:22] LABS: MANUAL DIFF FLAG NO
[2024-01-30 12:26] LABS: Basophils Absolute Auto 0.1 X10*3/uL (0.0-0.2); Eosinophils Percent Auto 0.2 % (0-4); Hematocrit 38.1 % (42.0-52.0); Hemoglobin 12.4 g/dl (14.0-18.0); Imm Gran Abs Auto 0.01 X10*3/uL (0.00-0.03); Imm Gran Pct Auto 0.2 % (0.0-0.4); Lymphocytes Absolute Auto 0.8 X10*3/uL (1.2-4.9); Lymphocytes Percent Auto 14.2 % (20-40); Mean Corpuscular HGB Conc 32.5 g/dl (31.0-36.0); Mean Corpuscular Hemoglobin 24.2 pg (27.0-33.0); Mean Corpuscular Volume 74.3 fL (80.0-98.0); Mean Platelet Volume 9.8 fL (9.4-12.4); Monocytes Absolute Auto 0.3 X10*3/uL (0.1-1.2); Monocytes Percent Auto 5.6 % (2-11); Neutrophils Absolute Auto 4.7 x10*3/uL (2.0-8.3); Neutrophils Percent Auto 78.8 % (45-73); Platelet Count 375 X10*3/uL (160-400); Red Blood Count 5.13 X10*6/uL (4.60-5.80); Red Cell Distribution Width 14.4 % (11.0-16.0); White Blood Count 5.9 X10*3/uL (4.8-10.8)
[2024-01-30 12:33] LABS: Prothrombin Time 11.9 SEC (10.9-12.4)
[2024-01-30 12:40] LABS: Alanine Aminotransferase 20 U/L (0-40); Albumin Level 4.7 g/dL (3.5-5.0); Alkaline Phosphatase 52 U/L (39-117); Anion Gap 10 (12-20); Aspartate Amino Transferase 33 U/L (5-37); Bilirubin Total 1.3 mg/dL (0.0-1.0); Blood Urea Nitrogen 12 mg/dL (9-16); Carbon Dioxide 28 mmol/L (22-29); Chloride 103 mmol/L (96-108); Creatinine Clr Calc Pharmacy 101.7; Estimated Glomerular Filt Rate > 60; Glucose Random 91 mg/dL (60-115); Lipase 18 U/L (8-78); Sodium 137 mmol/L (135-145); Total Protein 7.4 g/dL (6.5-8.0)
[2024-01-30 12:43] LABS: IDNOW Serial# 152EDE1D; Influenza A Negative (Negative); Influenza B2 Negative (Negative)
[2024-01-30 12:44] LABS: COVID-19 Test Negative (Negative); IDNOW Serial# 08D9AD1C
[2024-01-30 13:47] VITALS: BP 128/59; PULSE 65; RESP 16; TEMP 36.9; O2SAT 100
[2024-01-30 13:55] LABS: Appearance Urine Clear; Color Urine Yellow; Glucose Urine UA Negative (Negative); Leukocyte Esterase Urine Trace (Negative); Nitrite Urine Negative (Negative); Specific Gravity - Urine 1.015 (1.005-1.025); UMIC TRIGGER UACC YES; Urine Blood Negative (Negative); Urine Ketones Trace mg/dL (Negative); Urine Protein Trace mg/dL (Neg-Trace)
[2024-01-30 14:03] LABS: Bacteria Urine None Seen (None Seen); Hyaline Casts Urine 0-2 /LPF (0-2); RBC Urine 0-2 /HPF (0-2); Squamous Epithelial Cell Urine 0-2 /HPF (0-2); WBC Urine 0-5 /HPF (0-5)
[2024-01-30 14:48] LABS: Troponin-I High Sensitivity < 2.7 ng/L (<3.5-35.0)
[2024-01-30] MEDS: Meclizine HCl 25 MG TABLET PO (15:13)
[2024-01-30 15:14] VITALS: BP 113/65; PULSE 67; RESP 16; O2SAT 100
[2024-01-30 17:15] VITALS: BP 113/65; PULSE 67; RESP 16; TEMP 36.7; O2SAT 100
== END 2024-01-30 17:16 | disposition home or self-care (01) ==
PROVIDERS: Physician Assistant; Physician Assistant Medical; Emergency Provider Emergency Medicine
DX: R41.0 Disorientation, unspecified (principal); H81.13 Benign paroxysmal vertigo, bilateral; R11.2 Nausea with vomiting, unspecified; R00.0 Tachycardia, unspecified; R51.9 Headache, unspecified; Z79.899 Other long term (current) drug therapy; Z11.52 Encounter for screening for COVID-19
CPT/HCPCS: 70450; 80053; 81001; 82550; 83690; 84484; 85025; 85610; 87502; 87635; 93005; 99284

== ENCOUNTER → 2024-01-30 11:41 | Outpatient (BNV) | payer MEDICAID, SELFPAY | PROVIDERS: Emergency Provider Emergency Medicine; Visit Provider Internal Medicine Cardiovascular Disease | DX: R42 Dizziness and giddiness (principal) | CPT/HCPCS: 93010 ==

== ENCOUNTER → 2024-01-30 14:51 | Outpatient (BNV) | payer MEDICAID, SELFPAY | PROVIDERS: Emergency Provider Emergency Medicine; Visit Provider Radiology Diagnostic Radiology | DX: R42 Dizziness and giddiness (principal) | CPT/HCPCS: 70450 ==

== ENCOUNTER 2024-02-07 21:09 | Emergency (ER) | payer MEDICAID, SELFPAY ==
--- NOTE | ~2024-02-07 | CT_ITS ---
EXAMINATION: CT HEAD WITHOUT CONTRAST CT CERVICAL SPINE WITHOUT CONTRAST CLINICAL INFORMATION: Fall. Pain. COMPARISON: CT head from 01/30/2024. TECHNIQUE: Contiguous axial imaging was performed from the skull base to vertex without intravenous administration of contrast. Contiguous axial imaging was performed from the upper chest through the skull base without intravenous administration of contrast. Coronal and sagittal reformats were obtained at the acquisition workstation. This CT examination was performed using dose optimization techniques as appropriate, variously including the following: *Automated exposure control. *Adjustment of mA and/or kV according to patient size (this includes techniques or standardized protocols for targeted exams where dose is matched to indication/reason for exam; i.e. extremities or head). *Use of iterative reconstruction technique. DLP: 1264 mGy-cm FINDINGS: Head: There is no evidence of acute intracranial hemorrhage or edematous territorial infarction. Graves-white matter differentiation is preserved. There is no abnormal attenuation within the brain parenchyma. The ventricles are normal in morphology and size. No evidence for obstructive hydrocephalus. No abnormal mass effect or midline shift. No extra-axial fluid collections. No acute soft tissue or osseous abnormalities. Mild mucosal thickening of the paranasal sinuses. The mastoid air cells and middle ear cavities are clear. Cervical Spine: The atlantooccipital and atlantoaxial articulations remain well aligned. Straightening of the normal cervical lordosis. Otherwise, there is anatomic alignment of the vertebral bodies and posterior elements. No evidence of acute fracture or subluxation. The vertebral body heights are maintained. Advanced degenerative disc disease at C5-C6. Mild degenerative disc disease at all additional levels. Facet and uncovertebral joint arthropathy leads to osseous encroachment on the neural foramina at C5-C6. There is no prevertebral soft tissue swelling. The thyroid gland and remaining cervical soft tissues are within normal limits. The lung apices demonstrate no abnormalities. CT/CT cervical spine wo IV con IMPRESSION: 1. No evidence of acute intracranial hemorrhage or edematous territorial infarction. 2. No evidence of acute fracture or traumatic subluxation of the cervical spine. 3. Mild to moderate multilevel degenerative spondyloarthropathy of the cervical spine. Electronically signed by: Wang Ge DO 02/07/2024 10:55 PM EDT
[2024-02-07 21:11] VITALS: BP 116/66; PULSE 102; RESP 16; TEMP 36.7
[2024-02-07 21:15] VITALS: BP 115/78; PULSE 103; O2SAT 99
[2024-02-07 21:19] VITALS: BMI 21.3
--- NOTE | 2024-02-07 22:01 | ED.FALL ---
HPI - Fall General Chief Complaint: Fall Stated Complaint: ETOH FALL + COLLAR Time Seen by Provider: 02/07/24 21:12 Source: patient Mode of arrival: EMS Limitations: no limitations History of Present Illness ED Provider: lani LOPEZ Narrative: Patient alcoholic apparently had 6-7 shots earlier came home lost balance and fell from stairs comes here superficial abrasion to left forehead no loss of consciousness no seizures no other injuries patient refused to go to detox Related Data Home Medications ?Medication ?Instructions ?Recorded ?Confirmed naltrexone 12/06/23 12/16/23 Previous Rx's ?Medication ?Instructions ?Recorded ibuprofen 800 mg tablet 800 mg PO Q8H PRN pain #30 tabs 12/06/23 meclizine 25 mg tablet 25 mg PO BID PRN dizziness #20 tabs 01/30/24 Allergies Allergy/AdvReac Type Severity Reaction Status Date / Time No Known Allergies Allergy Verified 02/07/24 21:25 Review of Systems Review of Systems: Yes all other systems are reviewed and are negative PMFSH Past Medical History Medical History Alcohol dependence Surgical History History of laparoscopic appendectomy (~12/06/23) Hx of circumcision Hx of vasectomy Social History Social History Are you a primary career development coordinator/teacher to a significant other at home: No Do you presently have visiting nurse or other home services: No Alcohol intake: current Alcohol intake frequency: a few times a week Alcohol type: hard liquor Patient Tobacco Use Status: Never used Tobacco Smoked in Last 30 Days: No Use of substances other than those prescribed or required for medical reasons: Yes Substance Use Type: Marijuana Substance Use Frequency: Daily Advance Directives: No Advance Directives Information Provided: No Do you have a plan to hurt others: No Plan Physical Exam Vital Signs: Vital Signs: Last Vital Signs Temp 98.1 F 02/07/24 21:11 Pulse 102 H 02/07/24 21:11 Resp 16 02/07/24 21:11 BP 116/66 02/07/24 21:11 O2 Del Method Room Air 02/07/24 21:11 BMI result Body Mass Index 21.3 Appearance: Alert. Oriented X3. No acute distress. Eyes: PERRLA, No Nystagmus ENT: Pharynx normal. Oral Mucosa moist superficial abrasion left forehead Neck: Normal inspection. Neck supple. CVS: Normal heart rate and rhythm. Pulses normal. Respiratory: No respiratory distress. Equal air entry bilateral, no wheezing/rales/rhonchi Abdomen: Soft and nontender. Bowel sounds are present, no mass palpable, no CVA tenderness Skin: Skin warm and dry. Normal skin color. Normal skin turgor. Extremities: No lower extremity edema. No calf tenderness Neuro: Oriented X 3. No motor deficit. Medical Decision Making Medical Decision Making MDM Narrative: Patient alcoholic came here after the fall CT scan of the head and C-spine negative patient ambulatory in his steady gait in the ER walked out of the ED Independent Interpretation I performed an independent interpretation of an: CT Scan Interpretation: Negative Radiology Impression Discussion of test interpretation with radiology: I have reviewed the radiologist's reading. Discharge Plan Discharge Clinical Impression: Alcohol abuse, Fall (on) (from) other stairs and steps, initial encounter Patient Disposition: Left W/O Completing Treatment Prescriptions: No Action naltrexone ibuprofen 800 mg tablet 800 mg PO Q8H PRN (Reason: pain) Qty: 30 0RF meclizine 25 mg tablet 25 mg PO BID PRN (Reason: dizziness) Qty: 20 0RF Discharge Date/Time: 02/07/24 22:54
--- NOTE | 2024-02-07 22:54 | PC.NURSE ---
pt states he is leaving, informed dr Duggan , pt walking steadly. No s/s of acute distress.
--- NOTE | 2024-02-07 23:02 | PC.NURSE ---
Pt eloped at 1054. Ambulated past registration, registration called back notifying staff that pt was attempting to leave when pt walked through open door.. Security notified, out to parking lot to look for pt, [employer] called.
--- NOTE | 2024-02-07 23:09 | PC.NURSE ---
Per Anwer ok for pt to have eloped. states pt ambulating with steady gait, imaging negative, and declined detox services. states [facility] does not need to bring pt back to facility. [employer] notified.
== END 2024-02-07 22:54 | disposition left against medical advice (07) ==
PROVIDERS: Emergency Provider Internal Medicine
DX: S00.81XA Abrasion of other part of head, initial encounter (principal); F10.129 Alcohol abuse with intoxication, unspecified; Y90.9 Presence of alcohol in blood, level not specified; M54.2 Cervicalgia; R51.9 Headache, unspecified; W10.9XXA Fall (on) (from) unspecified stairs and steps, initial encounter; Y92.89 Other specified places as the place of occurrence of the external cause; Y99.8 Other external cause status; Z79.899 Other long term (current) drug therapy
CPT/HCPCS: 70450; 72125; 99284

== ENCOUNTER 2024-05-28 06:28 | Emergency (ER) | payer MEDICAID, SELFPAY ==
[2024-05-28 06:31] VITALS: BP 120/73; PULSE 76; RESP 20; TEMP 36.1; O2SAT 100; BMI 22.3
[2024-05-28 07:27] LABS: Hematocrit 42.3 % (42.0-52.0); Hemoglobin 13.5 g/dl (14.0-18.0); Mean Corpuscular HGB Conc 31.9 g/dl (31.0-36.0); Mean Corpuscular Hemoglobin 23.5 pg (27.0-33.0); Mean Corpuscular Volume 73.6 fL (80.0-98.0); Mean Platelet Volume 10.2 fL (9.4-12.4); Platelet Count 338 X10*3/uL (160-400); Red Blood Count 5.75 X10*6/uL (4.60-5.80); Red Cell Distribution Width 14.5 % (11.0-16.0); White Blood Count 12.4 X10*3/uL (4.8-10.8)
[2024-05-28 07:35] LABS: Alanine Aminotransferase 32 U/L (0-40); Alkaline Phosphatase 68 U/L (39-117); Anion Gap 14 (12-20); Aspartate Amino Transferase 34 U/L (5-37); Bilirubin Total 1.1 mg/dL (0.0-1.0); Blood Urea Nitrogen 15 mg/dL (9-16); Calcium 9.7 mg/dL (8.4-10.2); Carbon Dioxide 25 mmol/L (22-29); Chloride 105 mmol/L (96-108); Creatinine Clr Calc Pharmacy 118.5; Estimated Glomerular Filt Rate > 60; Ethanol < 10 mg/dL; Glucose Random 115 mg/dL (60-115); Sodium 140 mmol/L (135-145); Total Protein 8.6 g/dL (6.5-8.0)
[2024-05-28 08:03] LABS: Band Neutrophils Percent 6 % (3-5); Basophils Abs Manual 0.1 X10*3/uL (0.0-0.2); Basophils Percent Manual 1 % (0-2); Lymphocytes Absolute Manual 0.5 X10*3/uL (1.2-4.9); Lymphocytes Percent Manual 4 % (20-40); Monocytes Absolute Manual 0.5 X10*3/uL (0.1-1.2); Monocytes Percent Manual 4 % (2-11); Neutrophils Absolute Manual 11.3 X10*3/uL (2.0-8.3); Neutrophils Percent Manual 85 % (45-73); RBC Morphology NOTED
[2024-05-28 08:04] LABS: Acanthocytes 1+ (0-2) /OIF; Burr Cells 1+ (0-2) /OIF; Large Platelet PRESENT; Ovalocytes 1+ (5-14) /OIF; Platelet Estimate NORMAL (NORMAL); Platelet Morphology Comment NOTED; Toxic Vacuolation PRESENT
--- OUTSIDE RECORDS SUMMARY | 2024-05-28 09:18 | XMS_ITS | Clinical Summary ---
Author Organization [facility] Address [address] [place] [id number] Phone Care Team Providers Care Human Resources Team Member Name Role Phone Unavailable Primary Care Provider Unavailabl e Immunizations Immunization Administration Dates Next Due DTP 12/11/1995, 3,06/12/1991,03/28,01/26/1991 Hep B, ped/adol 05/10/1993,12/19/1992,11/14/1992 Hib (PRP-T) 06/20/1992,06/12/1991,01/26/1991 Influenza Split 01/24/2010 Influenza, injectable, trivalent 03/02/2003 MMR 12/11/1995,01/11/1992 Meningococcal Conj (Menactra) MCV4P 05/04/2010,1 04/22/2006 OPV 12/11/1995, 2,03/28/1991,01/26 Td (adult) (MBL), 2 Lf tetan us toxoid, PF, adsorbed 01/13/2002 Tdap 05/04/2010,02/20/2007 Family History Relation Name Status Comments Father Alive Father: Elroyrit is Maternal Grandfather Materna l grandfather: Hypertension, Diabetes mellitus, Hyperlipidemia Maternal Grandmother Materna l grandmother: Hyperlipidemia, Hepatitis B Mother Alive Mother: ADD/ADH D Sister Alive Sister: Asthma Social History Tobacco Use Types Packs/Day Years Used Date Smoking Tobacco: Never Assessed Sex and Gender Information Value Date Recorded Sex Assigned at Not on file Legal Sex Male 4:36 PM EDT Gender Identity Not on file Sexual Orientation Not on file Last Filed Vital Signs Vital Sign Reading Time Taken Comments Blood Pressure 118/62 05/04/2010 12:00 AM EST Pulse 68 05/04/2010 12:00 AM EST Temperature 36.5 ??C (97.7 ??F) 09/27/2010 12:00 AM E DT Respiratory Rate - - Oxygen Saturation - - Inhaled Oxygen Concentration - - Weight 70.1 kg (154 lb 8 oz) 09/27/2010 12:00 AM EDT Height 179.1 cm (5' 10.5 ) 05/04/2010 12:[address] Body Mass Index 21.86 05/04/2010 12:00 AM EST Plan of Treatment Health Maintenance Due Date Last Done Comments Varicella Vaccines (1 of 2 - 13+ 2-dose series) 11/27/2003 DTaP,Tdap,and Td Vaccines (8 - Td or Tdap) 05/04/2020 05/04/2010, 02/20/2007, 01/13/2002, Additional history exists Influenza Vaccines (#1) 2023 01/24/2010, 03/02 COVID-19 Vaccine ( - 2023- season) 2023 HIB Vaccines Completed 06/20/1992, 09/1991, 01/26/1991 Hepatitis B Vaccines Completed 05/10/1993, 12/19/1992, 11/14/1992 IPV Vaccines Completed 12/11/1995, 09/1991, 03/28/1991, Additional history exists MMR Vaccines Completed 12/11/1995, 01/11/1992 Meningococcal Vaccine Completed 05/04/2010, 007 HPV Vaccines Aged Out No longer eligi ble based on patient's age to complete this topic Hepatitis A Vaccines Aged Out No long er eligible based on patient's age to complete this topic Men B Vaccine Aged Out No longer elig ible based on patient's age to complete this topic Pneumococcal Vaccine Aged Out No long er eligible based on patient's age to complete this topic
--- OUTSIDE RECORDS SUMMARY | 2024-05-28 09:18 | XMS_ITS | Encounter Summary ---
Author Organization [facility] Address [address] [place] [address] Phone Care Team Providers Care Hopper Attendant Name Role Phone Sebas Shah MD Primary Care Provider [phone] Encounter Details Date Type Department Care Team (Late st Contact Info) Description 11/22/2016 Conversion Encounter [facility] [place] [address] [place] [address] Social History Tobacco Use Types Packs/Day Years Used Date Smoking Tobacco: Never Assessed Sex and Gender Information Value Date Recorded Sex Assigned at Not on file Legal Sex Male 4:36 PM EDT Gender Identity Not on file Sexual Orientation Not on file documented as of this encounter Plan of Treatment Not on file documented as of this encounter Visit Diagnoses Not on filedocumented in this encounter Care Teams Hopper Attendant Relationship Specialty Start Date End Date Sebas Shah MD [address] [place] [address] PCP - General 11/16/16 07/10/22 documented as of this encounter
--- OUTSIDE RECORDS SUMMARY | 2024-05-28 09:18 | XMS_ITS | Encounter Summary ---
Author Organization [facility] Address [address] [place] [id number] Phone Care Team Providers Care Occupational Safety Specialist Name Role Phone Sebas Shah MD Primary Care Provider [phone] Encounter Details Date Type Department Care Team (Late st Contact Info) Description 11/27/2010 Documentation EM Family Medicine [address] [place] [address] Family Medicine, Physician [address] [place] [address] Social History Tobacco Use Types Packs/Day Years [...] on filedocumented in this encounter Care Teams Occupational Safety Specialist Relationship Specialty Start Date End Date Sebas Shah MD [address] [place] [address] PCP - General 11/16/16 07/10/22 documented as of this encounter
== END 2024-05-28 19:51 | disposition left against medical advice (07) ==
PROVIDERS: Emergency Provider Emergency Medicine
DX: R51.9 Headache, unspecified (principal); Z79.899 Other long term (current) drug therapy
CPT/HCPCS: 36415; 80053; 80307; 85007; 85027; 99281